=== PATIENT | male | born 1960 | race Caucasian/White ===

== ENCOUNTER 2024-05-24 21:54 | Inpatient (IN) | payer OTHER ==
[~2024-05-24] VITALS: Ht 167.6 cm; Wt 76.3 kg
[~2024-05-24 21:54] MED LIST: ASPI81CH PO; ATOR10 PO; CLOP75; Cilostazol50 MG PO
[2024-05-24 22:19] LABS: BASOPHILS ABSOLUTE AUTO 0.09 K/mm3 (0.00-0.23); BASOPHILS PERCENT AUTO 1 % (0-2); EOSINOPHILS ABSOLUTE AUTO 0.08 K/mm3 (0.00-0.68); EOSINOPHILS PERCENT AUTO 1 % (0-6); Hemoglobin 17.2 g/dL (13.5-17.5); IMMATURE GRAN ABSOLUTE AUTO 0.04 K/mm3 (0.00-0.10); IMMATURE GRAN PERCENT AUTO 0 % (0-1); LYMPHOCYTES ABSOLUTE AUTO 1.94 K/mm3 (0.84-5.20); LYMPHOCYTES PERCENT AUTO 14 % (21-46); MONOCYTES ABSOLUTE AUTO 0.97 K/mm3 (0.16-1.47); MONOCYTES PERCENT AUTO 7 % (4-13); Mean Corpuscular HGB 32.8 pg (26.0-34.0); Mean Corpuscular HGB Conc 35.1 g/dL (31.5-36.5); Mean Corpuscular Volume 94 fL (80-100); Mean Platelet Volume 9.9 fL (9.1-12.4); NEUTROPHILS ABSOLUTE AUTO 10.84 K/mm3 (1.96-9.15); NEUTROPHILS PERCENT AUTO 78 % (41-73); Platelet Count 295 K/mm3 (150-400); RDW Coefficient Variation 13.2 % (11.7-14.2); Red Blood Cell Count 5.24 M/mm3 (4.30-5.90); White Blood Cell Count 13.96 K/mm3 (4.00-11.30)
[2024-05-24 22:41] LABS: Albumin, Blood 3.5 g/dL (3.4-5.0); Albumin/Globulin Ratio 0.8 (0.8-1.8); Bilirubin, Total 0.5 mg/dL (0.1-1.0); Calcium, Blood 9.3 mg/dL (8.5-10.1); Creatinine, Blood 0.75 mg/dL (0.60-1.20); Globulin, Blood 4.3 g/dL (2.2-4.0); Potassium, Blood 4.1 mmol/L (3.5-5.5); Total Protein, Blood 7.8 g/dL (6.4-8.2)
[2024-05-24] MEDS ORDERED: Aspirin 325 MG Tab PO ONE (23:10)
[2024-05-24] MEDS ORDERED: Clopidogrel Bisulfate 75 MG Tab PO ONE (23:10)
[2024-05-24] MEDS ORDERED: FLU VACC TS2024-25(6MOS UP)/PF 45 MCG/0.5 ML SYRINGE IM ONE (23:40)
[2024-05-25 00:53] VITALS: BP 145/86
[2024-05-25 03:50] VITALS: BP 143/74
[2024-05-25 05:59] LABS: BASOPHILS ABSOLUTE AUTO 0.08 K/mm3 (0.00-0.23); BASOPHILS PERCENT AUTO 1 % (0-2); EOSINOPHILS ABSOLUTE AUTO 0.15 K/mm3 (0.00-0.68); EOSINOPHILS PERCENT AUTO 2 % (0-6); Hematocrit 46.8 % (37.0-53.0); Hemoglobin 16.5 g/dL (13.5-17.5); IMMATURE GRAN ABSOLUTE AUTO 0.04 K/mm3 (0.00-0.10); IMMATURE GRAN PERCENT AUTO 0 % (0-1); LYMPHOCYTES PERCENT AUTO 20 % (21-46); MONOCYTES ABSOLUTE AUTO 0.82 K/mm3 (0.16-1.47); MONOCYTES PERCENT AUTO 8 % (4-13); Mean Corpuscular HGB 33.1 pg (26.0-34.0); Mean Corpuscular HGB Conc 35.3 g/dL (31.5-36.5); Mean Corpuscular Volume 94 fL (80-100); Mean Platelet Volume 10.2 fL (9.1-12.4); NEUTROPHILS ABSOLUTE AUTO 6.69 K/mm3 (1.96-9.15); NEUTROPHILS PERCENT AUTO 69 % (41-73); Platelet Count 267 K/mm3 (150-400); RDW Standard Deviation 44.8 fL (35.1-46.3); Red Blood Cell Count 4.99 M/mm3 (4.30-5.90); White Blood Cell Count 9.78 K/mm3 (4.00-11.30)
[2024-05-25 06:37] LABS: Magnesium, Blood 2.4 mg/dL (1.6-2.4)
[2024-05-25 06:39] LABS: Albumin, Blood 3.2 g/dL (3.4-5.0); Albumin/Globulin Ratio 0.9 (0.8-1.8); Bilirubin, Total 0.5 mg/dL (0.1-1.0); Bun/Creatinine Ratio 12.1 (12.0-20.0); Calcium, Blood 8.9 mg/dL (8.5-10.1); Creatinine, Blood 0.74 mg/dL (0.60-1.20); Globulin, Blood 3.5 g/dL (2.2-4.0); Potassium, Blood 3.9 mmol/L (3.5-5.5); Total Protein, Blood 6.7 g/dL (6.4-8.2)
[2024-05-25 06:40] LABS: CHOL/HDL RATIO 5.3; Cholesterol 235 mg/dL (50-200); HDL Cholesterol 44 mg/dL (>39); LDL/HDL RATIO 3.7; Low Density Lipoprotein Chol 162 mg/dL (0-110); Triglycerides 146 mg/dL (30-160); Very Low Density Lipoprot Chol 29 mg/dL (6-32)
[2024-05-25 07:49] VITALS: BP 115/71
[2024-05-25] MEDS ORDERED: Clopidogrel Bisulfate 75 MG Tab PO SCH (09:00)
[2024-05-25] MEDS ORDERED: Atorvastatin 40 MG Tab PO SCH (09:00)
[2024-05-25] MEDS ORDERED: Aspirin 81 MG Chew PO SCH (09:00)
[2024-05-25] MEDS ORDERED: Cilostazol 50 MG Tab PO SCH (09:00)
[2024-05-25 17:04] VITALS: BP 152/99
--- NOTE | 2024-05-25 18:14 | NUR ---
SHIFT SUMMARY PT WOKE FOR SHIFT REPORT THIS AM. ADMITTED FOR CVA. ONLY SM AMT OF L SIDE WEAKNESS NOTED. SPEECH CLEAR. SWALLOW EVAL DONE; DIET ORDERED PER SPEECH. MRI AND ECHO DONE TODAY. PT ABLE TO WORK WITH THERAPY AND TX TO CHAIR AT BS. NO C/O PAIN. VERY PLEASANT AND CO-OP WITH CARE. SR ON TELE PER MX. CALL LT IN REACH. ABLE TO MAKE NEEDS KNOWN.
[2024-05-25 19:25] VITALS: BP 139/94
[2024-05-26 04:26] VITALS: BP 129/94
--- NOTE | 2024-05-26 05:16 | NUR ---
SHIFT SUMMARY PATIENT SLEPT IN LONG INTERVALS, REPOSITIONED HIMSELF. USING URINAL MILD HYPERTENSION PERSISTS.TELE SR @ 86
--- NOTE | 2024-05-26 05:22 | NUR ---
SHIFT SUMMARY SLEPT WELL, UP TO BR BY HERSSELF. HR TACHYCARDIC AT 112.
[2024-05-26 07:27] VITALS: BP 126/83
[2024-05-26 14:55] LABS: International Normalized Ratio 0.99; Prothrombin Time Results 10.6 Sec (9.7-11.5)
[2024-05-26] MEDS ORDERED: Calcium Carbonate 500 MG Tab Chew PO PRN (16:25)
--- NOTE | 2024-05-26 17:55 | NUR ---
SHIFT SUMMARY PT AWAKE DURING SHIFT REPORT, LYING FOWLERS WATCHING TV. PT ADMITTED YESTERDAY FOR CVA, WAITING FOR TEST RESULTS AND D/C TO HOME. DR VENTURA IN TO SEE PT THIS AM; PLAN TO D/C TO [facility] TOMORROW, PER P/T RECOMMENDATIONS. PT HAD HOPED TO GO HOME, BUT STILL SHOWING WEAKNESS TO LEFT SIDE EXTREMITIES. P/T DID COME AND WORK WITH PT THIS AFTERNOON. PT ABLE TO AMBULATE IN RM AND DOWN THE MADRID WITH 1P SBA USING FWW & GB. THERAPY REPORTING IMPROVEMENT FROM YESTERDAY, BUT STILL SHOWING WEAKNESS AND UNSTEADINESS IN LLE. PT ALSO REPORTING FINE MOTOR SKILLS IN L HAND NOT FULLY RECOVERED. SM AMT OF SLURRED SPEECH NOTED WELL, BUT ABLE TO COMMUNICATE PRETTY CLEARLY. EATING MECH DIET W/O DIFFICULTY. NOT DRINKING MUCH AT ALL BECAUSE OF THE THICKENED LIQUID. NO C/O PAIN. DENIES FURTHER NEEDS. CALL LT IN REACH. USING URINAL AT BS.
[2024-05-26 19:48] VITALS: BP 137/92
[2024-05-27 03:29] VITALS: BP 127/94
--- NOTE | 2024-05-27 04:52 | NUR ---
SHIFT SUMMARY: Pt is admitted for CVA and is a full code. Is alert and able to make needs known. ADLs have been 1p. Denies pain or discomfort when asked.
[2024-05-27 07:29] VITALS: BP 148/97
--- NOTE | 2024-05-27 15:11 | NUR ---
"Spiritual Care | Pt. Request Prior to this Pts. discharge, Pt. was sitting up in bed when he welcomed my visit. Pt. is pleasant. Pt. verbalized that he was raised in the zoroastrian judaism. Considered matters of iraj and belief. Pt. verbalized graititude for the spiritual care visit."
--- NOTE | 2024-05-27 16:27 | NUR ---
DISCHARGE NOTE: PT D/C HOME WITH FAMILY TO TRANSPORT. PT PIV REMOVED BY [employer]ER HELPER. PT EDUCATED ON DISCHARGE MEDICATIONS AND NEED TO FOLLOW UP WITH PRIMARY CARE PHYSICIAN. PT STATED UNDERSTANDING AND DENIED QUESTIONS AT TIME OF DISCHARGE. PT ESCORTED TO VEHICLE BY [employer] HEL[employer].
[2024-05-29 10:13] LABS: HOMOCYSTEINE, TOTAL 14 umol/L (0-15)
[2024-05-29 12:31] LABS: ANTI-XA QUALITATIVE INTERP Not Performed (Not Present); ANTICOAG MEDICATION NEUTRALIZ Not Performed (Not Performed); DRVVT 1:1 MIX RATIO Not Performed (<=1.20); DRVVT CONFIRMATION RATIO Not Performed (<=1.20); DRVVT SCREEN RATIO 1.12 (<=1.20); HEXAGONAL PHOSPHOLIPID CONFIRM Not Performed s (<=7.9); NEUTRALIZED DRVVT SCREEN RATIO Not Performed (<=1.20); NEUTRALIZED PTT-LA RATIO Not Performed (<=1.20); PROTHROMBIN TIME (PT) 13.2 s (12.0-15.5); PTT-LA RATIO 1.12 (<=1.20); THROMBIN TIME (TT) Not Performed s (<=19.5)
[2024-05-29 14:18] LABS: CARDIOLIPIN ANTIBODY IGG <10 GPL (<=14); CARDIOLIPIN ANTIBODY IGM 20 MPL (<=12)
[2024-05-29 14:38] LABS: B2GLYCOPROTEIN 1, IGG ANTIBODY <10 SGU (<=20); B2GLYCOPROTEIN 1, IGM ANTIBODY <10 SMU (<=20)
[2024-05-29 17:59] LABS: ANTITHROMBIN, ENZYM (ACTIVITY) 111 % (76-128)
[2024-05-29 18:39] LABS: PROTEIN C FUNCTIONAL 150 % (83-168)
[2024-05-30 00:24] LABS: APC RESISTANCE 3.96 (>=2.00); FACTOR V LEIDEN BY PCR Not Done; FACV REF SPECIMEN Not Done
[2024-05-30 13:34] LABS: PROTEIN S AG FREE 95 % (74-147)
== END 2024-05-27 17:44 | disposition home or self-care (01) | DRG 65 ==
LOC: ER 21:54 → MEDS 21:55
PROVIDERS: Emergency Medicine; Family Medicine; ADMIT Student in an Organized Health Care Education/Training Program
DX: I63.9 Cerebral infarction, unspecified (principal); G81.94 Hemiplegia, unspecified affecting left nondominant side; Z28.21 Immunization not carried out because of patient refusal; R29.703 NIHSS score 3; I73.9 Peripheral vascular disease, unspecified; F17.290 Nicotine dependence, other tobacco product, uncomplicated; Z71.6 Tobacco abuse counseling; I65.23 Occlusion and stenosis of bilateral carotid arteries
CPT/HCPCS: 36415; 70450; 70496; 70498; 70551; 80053; 80061; 83036; 83735; 85025; 85610; 85730; 92526; 92610; 93005; 93010; 93306; 97110; 97116; 97162; 97165; 97530; 99285-25; A9270; G0378; Q9967